=== PATIENT | female | born 1995 | race American Indian/Alaskan Native ===

== ENCOUNTER 2018-10-10 12:57 | Emergency (ER) | payer OTHER ==
--- NOTE | 2018-10-10 13:12 | ED PDOC ---
Arrival/HPI - General Historian: Patient - History of Present Illness Narrative History of Present Illness (Text): 10/10/18 13:22 Patient is a 23 yo female with asthma who presents with cough. Patient states that she was at work at [employer] and a machine stopped working and smoke was blowing everywhere. When this happened, patient began coughing and felt chest tightness with shortness of breath. She says she drank water and walked here. She did not have her inhaler. She last used her rescue inhaler about 2 months ago. She is not on any maintenance medications. She was never hospitalized or intubated. She is presently feeling asymptomatic. Time/Duration: 1/2 hour Symptom Onset: Sudden Symptom Course: Improving Quality: Tightness <America Howard - Last Filed: 10/10/18 13:58> <Tirso Roy - Last Filed: 10/11/18 07:14> - General Chief Complaint: Shortness Of Breath Time Seen by Provider: 10/10/18 12:58 Past Medical History - Provider Review Nursing Documentation Reviewed: Yes <America Howard - Last Filed: 10/10/18 13:58> Family/Social History - Physician Review Nursing Documentation Reviewed: Yes Family/Social History: Unknown Family HX <America Howard - Last Filed: 10/10/18 13:58> Allergies/Home Meds <America Howard - Last Filed: 10/10/18 13:58> <Tirso Roy - Last Filed: 10/11/18 07:14> Allergies/Adverse Reactions: Allergies No Known Allergies Allergy (Verified 10/10/18 13:22) Home Medications: Home Meds Medication Instructions Recorded Confirmed Inhaler? 1 puff INH Q4 PRN 10/10/18 10/10/18 Review of Systems - Review of Systems Constitutional: absent: Fevers Eyes: Normal ENT: Normal Respiratory: SOB, Cough, Wheezing. absent: Sputum Cardiovascular: absent: Chest Pain, Palpitations Gastrointestinal: absent: Abdominal Pain, Nausea, Vomiting Genitourinary Female: Normal Skin: absent: Rash, Pruritis, Skin Lesions Neurological: absent: Headache, Dizziness Endocrine: absent: Diaphoresis Hemo/Lymphatic: absent: Adenopathy <America Howard - Last Filed: 10/10/18 13:58> Physical Exam Vital Signs Reviewed: Yes Temperature: Afebrile Blood Pressure: Normal Pulse: Regular Respiratory Rate: Normal Appearance: Positive for: Non-Toxic, Comfortable Pain Distress: None Mental Status: Positive for: Alert and Oriented X 3 - Systems Exam Head: Present: Atraumatic, Normocephalic Pupils: Present: PERRL Extroacular Muscles: Present: EOMI Conjunctiva: Present: Normal Mouth: Present: Moist Mucous Membranes Pharnyx: Present: Normal. No: ERYTHEMA, EXUDATE Neck: Present: Normal Range of Motion. No: Lymphadenopathy Respiratory/Chest: Present: Clear to Auscultation, Good Air Exchange. No: Respiratory Distress, Accessory Muscle Use, Wheezes Cardiovascular: Present: Regular Rate and Rhythm, Normal S1, S2 Back: Present: Normal Inspection Neurological: Present: GCS=15, CN II-XII Intact, Speech Normal Skin: Present: Warm, Dry, Normal Color Lymphatic: No: Cervical Adenopathy Psychiatric: Present: Alert, Oriented x 3, Normal Insight, Normal Concentration <America Howard - Last Filed: 10/10/18 13:58> Vital Signs Temp Pulse Resp BP Pulse Ox 10/10/18 13:14 98.3 F 75 17 115/80 100 <Tirso Roy - Last Filed: 10/11/18 07:14> Medical Decision Making ED Course and Treatment: 10/10/18 13:36 CXR Duoneb Re-evaluation Time: 13:58 Reassessment Condition: Re-examined, Improved - RAD Interpretation Radiology Orders: CXR- unremarkable [employer] Detail: ED Physician - Medication Orders Current Medication Orders: 10/10/18 13:37 Duoneb <America Howard - Last Filed: 10/10/18 13:58> ED Course and Treatment: 10/10/18 15:00 Patient reexamined and feels much better. She is advised to avoid noxious fumes that may trigger airway responsiveness. She is advised to follow up in clinic. Opportunity for questions given and answered. She is stable for discharge. - RAD Interpretation Radiology Orders: 10/10/18 13:27 CXR [CHEST PORTABLE] [RAD] Stat - Medication Orders Current Medication Orders: Discontinued Medications Albuterol/Ipratropium (Duoneb 3 Mg/0.5 Mg (3 Ml) Ud) 3 ml IH STAT STA Stop: 10/10/18 13:31 Last Admin: 10/10/18 13:39 Dose: 3 ml <Tirso Roy - Last Filed: 10/11/18 07:14> Disposition/Present on Arrival - Present on Arrival Any Indicators Present on Arrival: No History of DVT/PE: No History of Uncontrolled Diabetes: No Urinary Catheter: No History of Decub. Ulcer: No History Surgical Site Infection Following: None - Disposition Have Diagnosis and Disposition been Completed?: Yes Disposition Time: 13:59 Patient Plan: Discharge <America Howard - Last Filed: 10/10/18 13:58> <Tirso Roy - Last Filed: 10/11/18 07:14> - Disposition Diagnosis: Asthma Disposition: HOME/ ROUTINE Condition: GOOD Discharge Instructions (ExitCare): Asthma, Adult (DC) Forms: [facility] ([place]), WORK NOTE
[2018-10-10 13:25] VITALS: BP 115/80; PULSE 75; RESP 17; TEMP 98.3; O2SAT 100
[2018-10-10] MEDS ORDERED: Albuterol-Ipratrop 3 mg / 0.5 (3 ml) UD IH STA (13:30)
--- NOTE | 2018-10-10 14:18 | RAD ---
Date of service: 10/10/2018 HISTORY: sob COMPARISON: No prior. TECHNIQUE: 1 view obtained. FINDINGS: LUNGS: No active pulmonary disease. PLEURA: No significant pleural effusion identified, no pneumothorax apparent. CARDIOVASCULAR: No aortic atherosclerotic calcification present. Normal cardiac size. No pulmonary vascular congestion. OSSEOUS STRUCTURES: No significant abnormalities. VISUALIZED UPPER ABDOMEN: Normal. OTHER FINDINGS: None. IMPRESSION: No active disease.
== END 2018-10-10 14:05 | disposition home or self-care (01) ==
LOC: MERGE 12:57 → ED 12:57
DX: J45.909 Unspecified asthma, uncomplicated (principal)